=== PATIENT | male | born 1940 | race Caucasian/White ===

== ENCOUNTER 2018-05-23 18:50 | Emergency (ER) | payer MEDICARE ==
[~2018-05-23] VITALS: Ht 193 cm; Wt 111.1 kg
[~2018-05-23 18:50] MED LIST: AMLO10 PO; ASCO500 PO; ASPI81EC PO; BENA20 PO; BENAML20/5 PO; CALCAVITDA PO; Colace100 MG PO; FISH1000 PO; FOLI1 PO; HYDACE5 PO; LORA1 PO; MAGOXI400 PO; METO50 PO; PROP60 PO; Percocet 5-3251 EACH PO; RXLORA1 PO; SIMV10 PO; SIMV40 PO; WARF5 PO; [UNRECOGNIZED DRUG - SUPPLY]
[2018-05-23 19:27] LABS: BASOPHILS ABSOLUTE AUTO 0.05 K/mm3 (0.00-0.23); BASOPHILS PERCENT AUTO 0 % (0-2); EOSINOPHILS ABSOLUTE AUTO 0.01 K/mm3 (0.00-0.68); EOSINOPHILS PERCENT AUTO 0 % (0-6); Hematocrit 40.3 % (37.0-53.0); Hemoglobin 13.6 g/dL (13.5-17.5); IMMATURE GRAN ABSOLUTE AUTO 0.11 K/mm3 (0.00-0.10); IMMATURE GRAN PERCENT AUTO 1 % (0-1); LYMPHOCYTES ABSOLUTE AUTO 0.79 K/mm3 (0.84-5.20); LYMPHOCYTES PERCENT AUTO 6 % (21-46); MONOCYTES ABSOLUTE AUTO 0.89 K/mm3 (0.16-1.47); MONOCYTES PERCENT AUTO 7 % (4-13); Mean Corpuscular HGB 31.6 pg (26.0-34.0); Mean Corpuscular HGB Conc 33.7 g/dL (31.5-36.5); Mean Corpuscular Volume 94 fL (80-100); Mean Platelet Volume 10.2 fL (9.1-12.4); NEUTROPHILS ABSOLUTE AUTO 11.64 K/mm3 (1.96-9.15); NEUTROPHILS PERCENT AUTO 86 % (41-73); Platelet Count 153 K/mm3 (150-400); RDW Coefficient Variation 11.9 % (11.7-14.2); RDW Standard Deviation 41.1 fL (35.1-46.3); Red Blood Cell Count 4.31 M/mm3 (4.30-5.90); White Blood Cell Count 13.49 K/mm3 (4.00-11.30)
[2018-05-23 19:39] LABS: International Normalized Ratio 3.12; Prothrombin Time Results 30.1 Sec (9.7-11.5)
[2018-05-23 19:40] LABS: Albumin, Blood 3.3 g/dL (3.4-5.0); Albumin/Globulin Ratio 0.9 (0.8-1.8); Bun/Creatinine Ratio 19.2 (12.0-20.0); Calcium, Blood 8.7 mg/dL (8.5-10.1); Creatinine, Blood 1.25 mg/dL (0.60-1.20); Globulin, Blood 3.5 g/dL (2.2-4.0); Potassium, Blood 4.7 mmol/L (3.5-5.5); Total Protein, Blood 6.8 g/dL (6.4-8.2)
[2018-05-23 19:40] LABS: Calcium, Ionized (POC) 0.94 mmol/L (1.10-1.46); Chloride (POC) 111 mmol/L (98-108); Creatinine (POC) 0.8 mg/dL (0.8-1.3); Glucose (ISTAT POC) 106 mg/dL (70-99); Hemoglobin (POC) 10.9 g/dL (13.5-17.5); Potassium (POC) 4.1 mmol/L (3.5-5.5); Sodium (POC) 144 mmol/L (135-148); Total CO2 (POC) 21 mmol/L (21-32)
[2018-05-23] MEDS ORDERED: ASPI81CH PO (20:39)
[2018-05-23] MEDS ORDERED: Inderal40 MG (20:39)
[2018-05-23] MEDS ORDERED: Lotrel 5-40 MG1 EACH PO (20:39)
== END 2018-05-23 21:40 | disposition short-term general hospital (02) ==
LOC: ER 18:50
PROVIDERS: Emergency Medicine
DX: S27.0XXA Traumatic pneumothorax, initial encounter (principal); S22.43XA Multiple fractures of ribs, bilateral, initial encounter for closed fracture; S22.051A Stable burst fracture of T5-T6 vertebra, initial encounter for closed fracture; S20.211A Contusion of right front wall of thorax, initial encounter; I10 Essential (primary) hypertension; I25.2 Old myocardial infarction; I48.91 Unspecified atrial fibrillation; I25.10 Atherosclerotic heart disease of native coronary artery without angina pectoris; Z88.5 Allergy status to narcotic agent; Z79.01 Long term (current) use of anticoagulants; Z79.899 Other long term (current) drug therapy; Z86.73 Personal history of transient ischemic attack (TIA), and cerebral infarction without residual deficits; V86.59XA Driver of other special all-terrain or other off-road motor vehicle injured in nontraffic accident, initial encounter
CPT/HCPCS: 36415; 70450; 71260; 72125; 74177; 80047; 80053; 85014; 85025; 85610; 93005; 93010; 96374; 99285-25; J3010; J7030; Q9967

== ENCOUNTER → 2018-08-13 | Outpatient (CLI) | payer MEDICARE ==
[~2018-08-13] MED LIST changes: +ASPI81CH PO; +Inderal40 MG; +Lotrel 5-40 MG1 EACH PO
== END | disposition home or self-care (01) ==
LOC: LAB SHORT 12:04 → PLD 12:04
DX: D04.39 Carcinoma in situ of skin of other parts of face (principal)
CPT/HCPCS: 88305

== ENCOUNTER → 2019-02-18 | Outpatient (CLI) | payer MEDICARE | END | disposition home or self-care (01) | LOC: PLD 14:21 → LAB SHORT 14:21 | DX: D48.5 Neoplasm of uncertain behavior of skin (principal) | CPT/HCPCS: 88305 ==

== ENCOUNTER → 2019-06-08 | Outpatient (CLI) | payer MEDICARE ==
[2019-06-08 14:34] LABS: Protein, Urine Quantitative 16.4 mg/dL (0.0-11.9)
[2019-06-08 15:51] LABS: Creatinine Urine 98.7 mg/dL (27.00-270.00); Microalbumin, Urine Quant. 22.6 mg/L (0.000-20.000)
== END | disposition home or self-care (01) ==
LOC: LAB 08:13 → LAB SHORT 08:13
PROVIDERS: Internal Medicine Nephrology
DX: N18.3 Chronic kidney disease, stage 3 (moderate) (principal); D63.1 Anemia in chronic kidney disease; N20.0 Calculus of kidney; R76.9 Abnormal immunological finding in serum, unspecified; R94.5 Abnormal results of liver function studies; R94.6 Abnormal results of thyroid function studies; N13.30 Unspecified hydronephrosis; R32 Unspecified urinary incontinence
CPT/HCPCS: 81050; 82043; 82570; 84156

== ENCOUNTER → 2020-03-09 | Outpatient (CLI) | payer MEDICARE | END | disposition home or self-care (01) | LOC: LAB SHORT 13:32 → PLD 13:32 | DX: C44.311 Basal cell carcinoma of skin of nose (principal) | CPT/HCPCS: 88305 ==

== ENCOUNTER 2020-04-07 08:25 | Day surgery (SDC) | payer MEDICARE ==
--- NOTE | 2020-04-07 10:13 | NUR ---
NEURO CHECK BASELINE ALERT AND ORIENTED X4. DENIES NUMBNESS/TINGLING IN UPPER OR LOWER EXTREMITIES. HAND CUT OFF SAW OPERATOR METAL STRONG AND EQUAL BILATERALLY. FOOT FLEXION/EXTENSION STRONG AND EQUAL BILATERALLY. PERRLA.
--- NOTE | 2020-04-07 10:16 | NUR ---
REPORT GIVEN TO BINA DALEY
== END 2020-04-07 11:48 | disposition home or self-care (01) ==
LOC: RAD 08:25 → CT 10:00 → RAD 11:48
DX: M96.1 Postlaminectomy syndrome, not elsewhere classified (principal); Z87.891 Personal history of nicotine dependence
CPT/HCPCS: 62304; 72132; Q9966

== ENCOUNTER → 2020-09-14 | Outpatient (CLI) | payer MEDICARE | END | disposition home or self-care (01) | LOC: PLD 08:46 → LAB SHORT 08:46 | DX: D48.9 Neoplasm of uncertain behavior, unspecified (principal) | CPT/HCPCS: 88305 ==

== ENCOUNTER → 2022-09-25 | Outpatient (CLI) | payer MEDICARE | LOC: LAB SHORT 14:55 → PLD 14:55 | DX: D04.39 Carcinoma in situ of skin of other parts of face (principal); D23.5 Other benign neoplasm of skin of trunk | CPT/HCPCS: 88304; 88305 ==

== ENCOUNTER → 2022-10-22 | Outpatient (CLI) | payer MEDICARE | END | disposition home or self-care (01) | LOC: LAB SHORT 15:01 | DX: L82.1 Other seborrheic keratosis (principal) | CPT/HCPCS: 88305 ==

== ENCOUNTER → 2023-02-19 | Outpatient (CLI) | payer MEDICARE ==
[2023-02-19 10:53] LABS: BASOPHILS ABSOLUTE AUTO 0.04 K/mm3 (0.00-0.23); BASOPHILS PERCENT AUTO 0 % (0-2); EOSINOPHILS PERCENT AUTO 0 % (0-6); Hematocrit 44.8 % (37.0-53.0); Hemoglobin 15.4 g/dL (13.5-17.5); IMMATURE GRAN ABSOLUTE AUTO 0.07 K/mm3 (0.00-0.10); IMMATURE GRAN PERCENT AUTO 1 % (0-1); LYMPHOCYTES ABSOLUTE AUTO 0.56 K/mm3 (0.84-5.20); LYMPHOCYTES PERCENT AUTO 4 % (21-46); MONOCYTES ABSOLUTE AUTO 0.78 K/mm3 (0.16-1.47); MONOCYTES PERCENT AUTO 5 % (4-13); Mean Corpuscular HGB 31.9 pg (26.0-34.0); Mean Corpuscular HGB Conc 34.4 g/dL (31.5-36.5); Mean Corpuscular Volume 93 fL (80-100); Mean Platelet Volume 10.2 fL (9.1-12.4); NEUTROPHILS ABSOLUTE AUTO 13.77 K/mm3 (1.96-9.15); NEUTROPHILS PERCENT AUTO 90 % (41-73); Platelet Count 126 K/mm3 (150-400); RDW Coefficient Variation 12.7 % (11.7-14.2); RDW Standard Deviation 43.1 fL (35.1-46.3); Red Blood Cell Count 4.83 M/mm3 (4.30-5.90); White Blood Cell Count 15.22 K/mm3 (4.00-11.30)
[2023-02-19 11:20] LABS: Albumin, Blood 3.4 g/dL (3.4-5.0); Albumin/Globulin Ratio 0.8 (0.8-1.8); Bilirubin, Total 2.5 mg/dL (0.1-1.0); Bun/Creatinine Ratio 21.3 (12.0-20.0); Calcium, Blood 9.6 mg/dL (8.5-10.1); Creatinine, Blood 1.5 mg/dL (0.60-1.20); Globulin, Blood 4.2 g/dL (2.2-4.0); Potassium, Blood 4.2 mmol/L (3.5-5.5); Total Protein, Blood 7.6 g/dL (6.4-8.2)
== END | disposition home or self-care (01) ==
LOC: LAB SHORT 10:43 → LAB 10:43
PROVIDERS: Physician Assistant
DX: N39.0 Urinary tract infection, site not specified (principal); R50.9 Fever, unspecified
CPT/HCPCS: 80053; 83605; 85025

== ENCOUNTER 2023-10-12 05:07 | Inpatient (IN) | payer MEDICARE ==
[~2023-10-12] VITALS: Ht 185.4 cm; Wt 97.0 kg
[2023-10-12] VITALS (10 sets, daily range): BP systolic 164–190; BP diastolic 81–101
[~2023-10-12 05:07] MED LIST changes: -Inderal40 MG; +Inderal40 MG PO
[2023-10-12] MEDS ORDERED: LOSA25 PO (05:20)
[2023-10-12] MEDS ORDERED: METO25ER PO (05:20)
[2023-10-12] MEDS ORDERED: DOCU100 (05:20)
[2023-10-12 06:30] LABS: BASOPHILS ABSOLUTE AUTO 0.06 K/mm3 (0.00-0.23); BASOPHILS PERCENT AUTO 1 % (0-2); EOSINOPHILS ABSOLUTE AUTO 0.22 K/mm3 (0.00-0.68); EOSINOPHILS PERCENT AUTO 3 % (0-6); Hematocrit 40.2 % (37.0-53.0); Hemoglobin 13.6 g/dL (13.5-17.5); IMMATURE GRAN ABSOLUTE AUTO 0.03 K/mm3 (0.00-0.10); IMMATURE GRAN PERCENT AUTO 0 % (0-1); LYMPHOCYTES ABSOLUTE AUTO 1.18 K/mm3 (0.84-5.20); LYMPHOCYTES PERCENT AUTO 14 % (21-46); MONOCYTES ABSOLUTE AUTO 0.65 K/mm3 (0.16-1.47); MONOCYTES PERCENT AUTO 8 % (4-13); Mean Corpuscular HGB 32.2 pg (26.0-34.0); Mean Corpuscular HGB Conc 33.8 g/dL (31.5-36.5); Mean Corpuscular Volume 95 fL (80-100); NEUTROPHILS ABSOLUTE AUTO 6.11 K/mm3 (1.96-9.15); NEUTROPHILS PERCENT AUTO 74 % (41-73); Platelet Count 138 K/mm3 (150-400); RDW Coefficient Variation 11.7 % (11.7-14.2); RDW Standard Deviation 40.2 fL (35.1-46.3); Red Blood Cell Count 4.22 M/mm3 (4.30-5.90); White Blood Cell Count 8.25 K/mm3 (4.00-11.30)
[2023-10-12 06:46] LABS: Albumin/Globulin Ratio 0.8 (0.8-1.8); Bilirubin, Total 0.8 mg/dL (0.1-1.0); Bun/Creatinine Ratio 21.2 (12.0-20.0); Calcium, Blood 8.7 mg/dL (8.5-10.1); Creatinine, Blood 1.04 mg/dL (0.60-1.20); Globulin, Blood 3.8 g/dL (2.2-4.0); Potassium, Blood 3.9 mmol/L (3.5-5.5); Total Protein, Blood 6.8 g/dL (6.4-8.2)
[2023-10-12 15:09] LABS: International Normalized Ratio 2.22; Prothrombin Time Results 22.3 Sec (9.7-11.5)
[2023-10-12 18:50] LABS: Influenza A, PCR NEGATIVE (NEGATIVE); Influenza B, PCR NEGATIVE (NEGATIVE); Resp Syncytial Virus, PCR NEGATIVE (NEGATIVE); SARS-Cov-2 (COVID-19) PCR, MMC NEGATIVE (NEGATIVE)
[2023-10-12] MEDS ORDERED: VITAMIN D350 MC3 PO (22:28)
[2023-10-13] VITALS (24 sets, daily range): BP systolic 106–169; BP diastolic 52–96
[2023-10-13 04:32] LABS: BASOPHILS ABSOLUTE AUTO 0.05 K/mm3 (0.00-0.23); BASOPHILS PERCENT AUTO 1 % (0-2); EOSINOPHILS ABSOLUTE AUTO 0.09 K/mm3 (0.00-0.68); EOSINOPHILS PERCENT AUTO 1 % (0-6); Hematocrit 41.2 % (37.0-53.0); Hemoglobin 14.1 g/dL (13.5-17.5); IMMATURE GRAN ABSOLUTE AUTO 0.02 K/mm3 (0.00-0.10); IMMATURE GRAN PERCENT AUTO 0 % (0-1); LYMPHOCYTES ABSOLUTE AUTO 0.88 K/mm3 (0.84-5.20); LYMPHOCYTES PERCENT AUTO 10 % (21-46); MONOCYTES ABSOLUTE AUTO 0.71 K/mm3 (0.16-1.47); MONOCYTES PERCENT AUTO 8 % (4-13); Mean Corpuscular HGB 32.2 pg (26.0-34.0); Mean Corpuscular HGB Conc 34.2 g/dL (31.5-36.5); Mean Corpuscular Volume 94 fL (80-100); Mean Platelet Volume 10.5 fL (9.1-12.4); NEUTROPHILS ABSOLUTE AUTO 7.13 K/mm3 (1.96-9.15); NEUTROPHILS PERCENT AUTO 80 % (41-73); Platelet Count 143 K/mm3 (150-400); RDW Coefficient Variation 11.8 % (11.7-14.2); RDW Standard Deviation 40.5 fL (35.1-46.3); Red Blood Cell Count 4.38 M/mm3 (4.30-5.90); White Blood Cell Count 8.88 K/mm3 (4.00-11.30)
[2023-10-13 04:48] LABS: International Normalized Ratio 1.36
[2023-10-13 04:55] LABS: Albumin, Blood 3.1 g/dL (3.4-5.0); Albumin/Globulin Ratio 0.8 (0.8-1.8); Bilirubin, Total 1.1 mg/dL (0.1-1.0); Bun/Creatinine Ratio 20.2 (12.0-20.0); Calcium, Blood 8.8 mg/dL (8.5-10.1); Creatinine, Blood 1.04 mg/dL (0.60-1.20); Globulin, Blood 3.9 g/dL (2.2-4.0); Potassium, Blood 3.9 mmol/L (3.5-5.5)
--- NOTE | 2023-10-13 06:09 | NUR ---
SHIFT SUMMARY: PT ADMITTED TO PCU 8 FROM ED AT APPROXIMATELY 2100 ON 10/13/23. KRYSTAL POLANCO MANAGER MANAGED BACKUP SERVICES ASSISTED WITH PT'S INITIAL TRANSFER INTO ROOM. A&OX4. COOPERATIVE AND FOLLOWING DIRECTIONS BUT ANXIOUS. CONSOLATION GIVEN. BP ELEVATED INTO 190'S. MEDICATED WITH PRN AND SCHEDULE MEDICATIONS, SEE EMAR, WITH GOOD RESULTS. MEDICATED FOR ABARCA WITH PRN TYLENOL. PT REPORTS IMPROVEMENT OF PAIN. O2 SATS MAINTAINED > 90% ON RA. DENIES FEELING SOB. DENIES CHEST PAIN/PRESSURE. HR PACED IN 60-70'S. NEURO CHECKS Q4H INTACT. NO MOTOR DIFICTIS NOTED. PT REPORTS DOUBLE VISION THAT HAS REMAINED UNCHANGED SINCE COMING INTO ED. PT ABLE TO STAND AT BEDSIDE AND VOID WITHOUT DIFFICULTY. CALL LIGHT IN REACH. BED ALARM ON. BED IN LOW POSITION.
--- NOTE | 2023-10-13 18:26 | NUR ---
Shift Summary Pt alert, oriented X4; forgetful at times, calm and cooperative with care. Pt resting in bed, repositions self from side to side. Pt continues to report "my eyes just wont focus" and narrowed vision; bilateral strength remains equal and intact. Pt denies pain, chest pain/pressure, sob, nausea, dizziness and numb/tingling. Tele paced, bp elevated, medicated with hydralazine x1 during shift. Spo2 >90% on ra, breathing even and unlabored. Abd soft nontender +bt t/o; multiple episodes of diarrhea t/o shift. Pt up in room with sba. Other vss. No other acute changes noted. Will coninue to monitor. Bed in low, bed alarm on, call light within reach
[2023-10-14] VITALS (7 sets, daily range): BP systolic 135–178; BP diastolic 58–87
[2023-10-14 04:32] LABS: BASOPHILS ABSOLUTE AUTO 0.06 K/mm3 (0.00-0.23); BASOPHILS PERCENT AUTO 1 % (0-2); EOSINOPHILS ABSOLUTE AUTO 0.08 K/mm3 (0.00-0.68); EOSINOPHILS PERCENT AUTO 1 % (0-6); Hematocrit 42.4 % (37.0-53.0); Hemoglobin 14.3 g/dL (13.5-17.5); IMMATURE GRAN ABSOLUTE AUTO 0.02 K/mm3 (0.00-0.10); IMMATURE GRAN PERCENT AUTO 0 % (0-1); LYMPHOCYTES ABSOLUTE AUTO 0.91 K/mm3 (0.84-5.20); LYMPHOCYTES PERCENT AUTO 11 % (21-46); MONOCYTES ABSOLUTE AUTO 0.86 K/mm3 (0.16-1.47); MONOCYTES PERCENT AUTO 11 % (4-13); Mean Corpuscular HGB 31.7 pg (26.0-34.0); Mean Corpuscular HGB Conc 33.7 g/dL (31.5-36.5); Mean Corpuscular Volume 94 fL (80-100); Mean Platelet Volume 10.3 fL (9.1-12.4); NEUTROPHILS ABSOLUTE AUTO 6.05 K/mm3 (1.96-9.15); NEUTROPHILS PERCENT AUTO 76 % (41-73); Platelet Count 145 K/mm3 (150-400); RDW Coefficient Variation 11.8 % (11.7-14.2); RDW Standard Deviation 40.7 fL (35.1-46.3); Red Blood Cell Count 4.51 M/mm3 (4.30-5.90); White Blood Cell Count 7.98 K/mm3 (4.00-11.30)
[2023-10-14 04:58] LABS: Bun/Creatinine Ratio 26.9 (12.0-20.0); Calcium, Blood 8.6 mg/dL (8.5-10.1); Creatinine, Blood 1.04 mg/dL (0.60-1.20); Potassium, Blood 3.6 mmol/L (3.5-5.5)
--- NOTE | 2023-10-14 06:13 | NUR ---
SHIFT SUMMARY: A&OX4. REPORTS CONTINUED VISION CHANGES STATING "ITS LIKE THE LETTERS ARE SHIFTING". CONTINUES TO HAVE EQUAL MOVEMENT IN ALL EXTREMITIES. UP TO BATHROOM WITH STAND BY ASSIST. DENIES ANY COMPLAINS OF CHEST PAIN/PRESSURE WITH HR PACED IN 60'S. O2 SATS > 90% ON RA. DENIES SOB. PT HAS HAD > 3 LOOSE STOOLS DURING THIS SHIFT. RECIEVED ORDER FOR RULE OUT C. DIFF TEST. STOOL COLLECTED, WAITING RESULTS. RESTING IN BED, CALL LIGHT IN REACH. BED IN LOW POSITION.
[2023-10-14 06:57] LABS: C DIFFICILE DNA NEGATIVE (Negative)
--- NOTE | 2023-10-14 07:48 | NUR ---
AM NOTE Pt alert, oriented x3; forgetful at times; calm and cooperative with care. Up with sba and walker in room. Pt denies pain, chest pain/pressure, sob, nausea, dizziness and numb/tingling. Pt continues to have blurred vision, no other neuro findings noted. Tele paced 60-70's, bp elevated this am. Spo2 >90% on ra, breathing even and unlabored. Abd soft, nontender, hyperactive bt noted t/o; pt continues to have dirrhea. No edema noted. VSS. Will continue to monitor.
--- NOTE | 2023-10-14 17:23 | NUR ---
Shift Summary No acute changes t/o shift. Pt up to bathroom. VSS. Will continue to monitor.
[2023-10-15 00:29] VITALS: BP 169/87
[2023-10-15 04:37] VITALS: BP 121/70
--- NOTE | 2023-10-15 07:22 | NUR ---
SHIFT SUMMARY: NO ACUTE CHANGES NOTED DURING THIS SHIFT. NURO CHECKS UNCHANGED. VITAL SIGNS STABLE AND RECORDED IN PT CHART. CALL LIGHT IN REACH. BED IN LOW POSITION.
[2023-10-15 07:31] VITALS: BP 139/74
--- NOTE | 2023-10-15 07:33 | NUR ---
AM NOTE Pt appears to be sleeping, wakes easily to verbal stimuli. Alert oriented x4; calm and cooperative with care. Pt continues with blurred vision. Pt denies pain, chest pain/pressure, sob, nausea, dizziness and numb/tingling. Tele paced 60, bp improved. Spo2 >90% on ra, breathing even and unlabored. Abd soft nontender +bt t/o. No edema noted. No other acute changes noted. Will continue to monitor.
[2023-10-15 11:02] VITALS: BP 134/80
[2023-10-15] MEDS ORDERED: ATOR80 PO (12:00)
[2023-10-15] MEDS ORDERED: ACET325 PO (12:01)
--- NOTE | 2023-10-15 13:18 | NUR ---
Discharge Summary Pt reporting lower back pain this afternoon, resolved on own; notified Dr Limon; bladder scan 28m, ok to continue with discharge. Pt educated on discharge instructions, follow up appointment and prescriptions. Faxed medications to [facility] per pt request. Vss. No other acute changes noted. Pt left room via wheelchair at 1256.
== END 2023-10-15 12:55 | disposition home or self-care (01) | DRG 64 ==
LOC: ER 05:07 → ERHOLD 10:13 → PCU 21:03 → ENPENDDIS 10-15 12:14 → PCU 10-15 12:55
PROVIDERS: Emergency Medicine; Family Medicine; ADMIT Internal Medicine
DX: I63.50 Cerebral infarction due to unspecified occlusion or stenosis of unspecified cerebral artery (principal); G93.6 Cerebral edema; I61.1 Nontraumatic intracerebral hemorrhage in hemisphere, cortical; I48.20 Chronic atrial fibrillation, unspecified; I10 Essential (primary) hypertension; E78.5 Hyperlipidemia, unspecified; G25.0 Essential tremor; I35.0 Nonrheumatic aortic (valve) stenosis; I25.10 Atherosclerotic heart disease of native coronary artery without angina pectoris; I25.2 Old myocardial infarction; Z79.01 Long term (current) use of anticoagulants; Z79.82 Long term (current) use of aspirin; Z95.0 Presence of cardiac pacemaker; Z88.5 Allergy status to narcotic agent; Z95.1 Presence of aortocoronary bypass graft
CPT/HCPCS: 0241U; 36415; 70450; 70460; 80048; 80053; 85025; 85610; 87493; 92610; 93005; 93010; 93306; 96365; 96375; 96376; 97112; 97116; 97162; 97166; 97530; 99285-25; A9270; G0378; J0360; J3430; J7168; Q9967

== ENCOUNTER → 2025-03-03 | Outpatient (CLI) | payer MEDICARE ==
[~2025-03-03] MED LIST changes: +ACET325 PO; +ATOR80 PO; +DOCU100; +LOSA25 PO; +METO25ER PO; +VITAMIN D350 MC3 PO
[2025-03-03 12:46] LABS: BASOPHILS ABSOLUTE AUTO 0.06 K/mm3 (0.00-0.23); BASOPHILS PERCENT AUTO 1 % (0-2); EOSINOPHILS ABSOLUTE AUTO 0.09 K/mm3 (0.00-0.68); EOSINOPHILS PERCENT AUTO 1 % (0-6); Hemoglobin 14.2 g/dL (13.5-17.5); IMMATURE GRAN ABSOLUTE AUTO 0.08 K/mm3 (0.00-0.10); IMMATURE GRAN PERCENT AUTO 1 % (0-1); LYMPHOCYTES ABSOLUTE AUTO 0.79 K/mm3 (0.84-5.20); LYMPHOCYTES PERCENT AUTO 6 % (21-46); MONOCYTES ABSOLUTE AUTO 1.27 K/mm3 (0.16-1.47); MONOCYTES PERCENT AUTO 10 % (4-13); Mean Corpuscular HGB 32.6 pg (26.0-34.0); Mean Corpuscular HGB Conc 34.6 g/dL (31.5-36.5); Mean Corpuscular Volume 94 fL (80-100); NEUTROPHILS ABSOLUTE AUTO 10.72 K/mm3 (1.96-9.15); NEUTROPHILS PERCENT AUTO 82 % (41-73); RDW Coefficient Variation 11.9 % (11.7-14.2); RDW Standard Deviation 41.1 fL (35.1-46.3); Red Blood Cell Count 4.35 M/mm3 (4.30-5.90); White Blood Cell Count 13.01 K/mm3 (4.00-11.30)
[2025-03-03 12:47] LABS: Mean Platelet Volume 9.8 fL (9.1-12.4); Platelet Count 131 K/mm3 (150-400)
[2025-03-03 12:58] LABS: Albumin, Blood 3.4 g/dL (3.4-5.0); Albumin/Globulin Ratio 0.9 (0.8-1.8); Bilirubin, Total 1.9 mg/dL (0.1-1.0); Bun/Creatinine Ratio 23.4 (12.0-20.0); Calcium, Blood 9.4 mg/dL (8.5-10.1); Creatinine, Blood 1.37 mg/dL (0.60-1.20); Potassium, Blood 3.7 mmol/L (3.5-5.5); Total Protein, Blood 7.4 g/dL (6.4-8.2)
== END | disposition home or self-care (01) ==
LOC: LAB 12:37 → LAB SHORT 12:37
PROVIDERS: Chiropractor
DX: N39.0 Urinary tract infection, site not specified (principal); R17 Unspecified jaundice
CPT/HCPCS: 80053; 82248; 83605; 83690; 85025

== ENCOUNTER → 2025-03-03 | Outpatient (CLI) | payer MEDICARE | END | disposition home or self-care (01) | LOC: LAB 12:19 → LAB SHORT 12:19 | DX: N39.0 Urinary tract infection, site not specified (principal) | CPT/HCPCS: 87086 ==